=== PATIENT | male | born 1990 | race Two or more races ===

== ENCOUNTER 2023-12-27 01:10 | Inpatient (IN) | payer MEDICAID, OTHER ==
[~2023-12-27] VITALS: Ht 177.8 cm; Wt 90.7 kg
[2023-12-27 02:38] LABS: Basophils # (auto) 0 10 ^3/uL (0-0.2); Basophils % (auto) 0.2 % (0.0-2.0); Eosinophils # (auto) 0 10 ^3/uL (0-0.8); Hematocrit 46.4 % (41.0-53.0); Lymphocytes # (auto) 1.7 10 ^3/uL (0.4-5.4); Lymphocytes % (auto) 11.5 % (10.0-50.0); Mean Corpuscular Hemoglobin 27.1 pg (28.0-32.0); Mean Corpuscular Hgb Conc. 32.3 g/dL (32.0-36.0); Mean Corpuscular Volume 83.7 fL (80.0-100.0); Monocytes % (auto) 6.3 % (0.0-12.0); Neutrophils # (auto) 12.5 10 ^3/uL (1.6-8.6); Nucleated Red Blood Cells % 0.1 %; Red Blood Cells 5.54 10^6/uL (4.5-5.90); Red Cell Distribution Width 16.9 % (11.8-14.3); White Blood Cell 15.2 10^3/uL (4.4-10.8)
[2023-12-27 02:45] LABS: Acetaminophen < 2.0 UG/ML (10.0-20.0); Alanine Aminotransferase 59 U/L (7-40); Albumin 4.6 g/dL (3.2-4.8); Alkaline Phosphatase 157 U/L (46-116); Anion Gap 21 (5-15); Aspartate Aminotransferase 29 U/L (13-40); Bilirubin, Total 0.3 mg/dL (0.2-1.0); Calcium 9.7 mg/dL (8.7-10.4); Carbon Dioxide 15 mmol/L (20-30); Chloride 101 mmol/L (98-107); Glucose 161 mg/dL (74-106); Lipase 38 U/L (12-53); Potassium 3.6 mmol/L (3.5-5.1); Sodium 137 mmol/L (136-145); Total Protein 7.7 g/dL (5.7-8.2)
[2023-12-27 02:53] LABS: Salicylate < 3.0 mg/dL (2.8-20.0)
[2023-12-27 02:54] LABS: BUN/Creatinine Ratio 4.6 (10.0-20.0); Blood Urea Nitrogen < 5 mg/dL (9-23)
[2023-12-27 03:08] LABS: Blood Alcohol < 3.0 mg/dL (<10)
[2023-12-27] MEDS: ONDANSETRON ODT 4 MG TAB PO ONE (03:38)
[2023-12-27 04:00] VITALS: PULSE 64; RESP 15; O2SAT 97
[2023-12-27] MEDS: D5W/SOD CHLO 0.9% 1,000 ML IV ONE ×2 (04:00→05:00)
[2023-12-27] MEDS: THIAMINE 100mg/ml INJ (200mg/2ml VIAL) IV ONE (05:00)
[2023-12-27] MEDS ORDERED: NITROGLYCERIN 0.4 MG SL TAB SL PRN (05:15)
[2023-12-27] MEDS ORDERED: MORPHINE SULFATE INJ 2 MG/ml SYRG IV PRN (05:15)
[2023-12-27] MEDS: chlordiazePOXIDE HCL 25 MG CAP PO PRN (05:57)
[2023-12-27 09:02] LABS: Amphetamine Screen, Urine Neg (NEGATIVE); Barbiturate Scree,Urine Neg (NEGATIVE); Benzodiazephine Screen, Urine Neg (NEGATIVE); Cocaine Screen, Urine Neg (NEGATIVE); Opiate Scree,Urine Neg (NEGATIVE)
[2023-12-27 09:03] LABS: Cannabinoid Screen, Urine Neg (NEGATIVE); Phencyclidine Screen, Urine Neg (NEGATIVE)
[2023-12-27 09:34] LABS: Urine Bacteria None Seen /hpf (None Seen); Urine WBC None Seen /hpf (0 - 3)
[2023-12-27 09:46] LABS: Urine Blood Negative /uL (Negative); Urine Clarity Clear (Clear); Urine Color Light-Yellow (Yellow); Urine Protein, UAD Negative (Negative); Urine Specific Gravity 1.011 (1.001-1.035); Urine Urobilinogen Normal (Negative)
[2023-12-27] MEDS: ONDANSETRON HCL 4 MG/2 ML VIAL IV PRN (10:11)
[2023-12-27] MEDS: LORazepam 2MG/ML-1ML VIAL IV PRN ×2 (11:04→17:54)
[2023-12-27] MEDS: LORazepam 2MG/ML-1ML VIAL ONE (11:23)
[2023-12-27] MEDS: FOLIC ACID 1 MG, MAGNESIUM SULF SDV 50% 8 MEQ, MULTIPLE VITAMIN 10 ML, THIAMINE INJ 100... INJ SCH (12:01)
[2023-12-27 14:57] VITALS: PULSE 98; RESP 22; O2SAT 98
[2023-12-27] MEDS: FOLIC ACID 1 MG TAB PO ONE (17:52)
[2023-12-27] MEDS: THIAMINE HCL 100 MG TAB PO ONE (17:52)
[2023-12-27] MEDS: SODIUM CHLORIDE 0.9% 1,000 ML IV SCH (17:53)
[2023-12-27] MEDS ORDERED: FOLIC ACID 1 MG, MAGNESIUM SULF SDV 50% 8 MEQ, MULTIPLE VITAMIN 10 ML, THIAMINE INJ 100... INJ SCH (18:00)
[2023-12-27 19:30] VITALS: PULSE 116; RESP 16; O2SAT 100
[2023-12-28 06:07] LABS: Basophils # (auto) 0 10 ^3/uL (0-0.2); Basophils % (auto) 0.6 % (0.0-2.0); Eosinophils # (auto) 0 10 ^3/uL (0-0.8); Eosinophils % (auto) 0.2 % (0.0-7.0); Hematocrit 42.3 % (41.0-53.0); Hemoglobin 14.2 g/dL (13.5-17.5); Lymphocytes # (auto) 2.4 10 ^3/uL (0.4-5.4); Lymphocytes % (auto) 44.8 % (10.0-50.0); Mean Corpuscular Hemoglobin 27.9 pg (28.0-32.0); Mean Corpuscular Hgb Conc. 33.6 g/dL (32.0-36.0); Mean Corpuscular Volume 83.1 fL (80.0-100.0); Monocytes # (auto) 0.5 10 ^3/uL (0-1.3); Monocytes % (auto) 9.1 % (0.0-12.0); Neutrophils # (auto) 2.4 10 ^3/uL (1.6-8.6); Neutrophils % (auto) 45.3 % (37.0-80.0); Nucleated Red Blood Cells % 0.2 %; Red Blood Cells 5.09 10^6/uL (4.5-5.90); White Blood Cell 5.3 10^3/uL (4.4-10.8)
[2023-12-28 06:22] LABS: Alanine Aminotransferase 38 U/L (7-40); Alkaline Phosphatase 134 U/L (46-116); Anion Gap 6 (5-15); Aspartate Aminotransferase 27 U/L (13-40); Calcium 9.1 mg/dL (8.7-10.4); Carbon Dioxide 25 mmol/L (20-30); Chloride 106 mmol/L (98-107); Glucose 105 mg/dL (74-106); Potassium 3.7 mmol/L (3.5-5.1); Sodium 137 mmol/L (136-145)
[2023-12-28 06:23] LABS: Bilirubin, Total 0.7 mg/dL (0.2-1.0); Total Protein 6.8 g/dL (5.7-8.2)
[2023-12-28 06:24] LABS: BUN/Creatinine Ratio 4.1 (10.0-20.0); Blood Urea Nitrogen < 5 mg/dL (9-23)
[2023-12-28 08:30] VITALS: PULSE 98; RESP 14; TEMP 98.5; O2SAT 98
[2023-12-28] MEDS: ONDANSETRON HCL 4 MG/2 ML VIAL IV ONE (09:29)
[2023-12-28] MEDS: ACETAMINOPHEN 325 MG TAB PO ONE (09:29)
[2023-12-28] MEDS: THIAMINE HCL 100 MG TAB PO SCH (10:13)
[2023-12-28] MEDS: FOLIC ACID 1 MG TAB PO SCH (10:13)
[2023-12-28 12:30] VITALS: BP 118/68; PULSE 78; RESP 16; O2SAT 98
== END 2023-12-28 12:51 | disposition home or self-care (01) | DRG 422 ==
LOC: EDBD 01:10 → ER 01:10 → TELE 05:03 → UNDODEPER 12-28 12:41
PROVIDERS: ADMIT Internal Medicine Geriatric Medicine; ATTEND Internal Medicine Geriatric Medicine
DX: E86.0 Dehydration (principal); E87.29 Other acidosis; D72.829 Elevated white blood cell count, unspecified; F10.129 Alcohol abuse with intoxication, unspecified; F10.139 Alcohol abuse with withdrawal, unspecified; F41.9 Anxiety disorder, unspecified; Y90.0 Blood alcohol level of less than 20 mg/100 ml
CPT/HCPCS: 36415; 80053; 80307; 80320; 80329; 81001; 83690; 85025; 99291; G0378; J2405; Q0162

== ENCOUNTER 2024-01-20 03:10 | Emergency (ER) | payer MEDICAID ==
[~2024-01-20] VITALS: Ht 172.7 cm; Wt 80.0 kg
[2024-01-20 03:43] LABS: Chloride 109 mmol/L (98-107); Potassium 3.2 mmol/L (3.5-5.1); Sodium 140 mmol/L (136-145)
[2024-01-20 03:44] LABS: Anion Gap 10 (5-15); Calcium 9.6 mg/dL (8.7-10.4); Carbon Dioxide 21 mmol/L (20-30)
[2024-01-20 03:45] VITALS: PULSE 93; RESP 12; O2SAT 92
[2024-01-20 03:49] LABS: BUN/Creatinine Ratio 9.6 (10.0-20.0); Blood Urea Nitrogen 8 mg/dL (9-23); Glucose 121 mg/dL (74-106)
[2024-01-20 04:10] LABS: Basophils # (auto) 0 10 ^3/uL (0-0.2); Basophils % (auto) 0.4 % (0.0-2.0); Eosinophils # (auto) 0 10 ^3/uL (0-0.8); Eosinophils % (auto) 0.4 % (0.0-7.0); Hematocrit 43.2 % (41.0-53.0); Hemoglobin 14.5 g/dL (13.5-17.5); Lymphocytes # (auto) 2.1 10 ^3/uL (0.4-5.4); Lymphocytes % (auto) 27.7 % (10.0-50.0); Mean Corpuscular Hemoglobin 28.2 pg (28.0-32.0); Mean Corpuscular Hgb Conc. 33.6 g/dL (32.0-36.0); Mean Corpuscular Volume 84.1 fL (80.0-100.0); Monocytes # (auto) 0.5 10 ^3/uL (0-1.3); Monocytes % (auto) 7.2 % (0.0-12.0); Neutrophils # (auto) 4.8 10 ^3/uL (1.6-8.6); Neutrophils % (auto) 64.3 % (37.0-80.0); Nucleated Red Blood Cells % 0.2 %; Red Blood Cells 5.14 10^6/uL (4.5-5.90); Red Cell Distribution Width 15.9 % (11.8-14.3); White Blood Cell 7.4 10^3/uL (4.4-10.8)
[2024-01-20 04:40] VITALS: BP 108/64; PULSE 82; RESP 19; O2SAT 95
== END 2024-01-20 05:14 | disposition home or self-care (01) ==
LOC: EDBD 03:10 → ER 03:10
DX: R07.89 Other chest pain (principal)
CPT/HCPCS: 36415; 71045; 80048; 84484; 85025; 93005

== ENCOUNTER 2024-07-26 16:56 | Emergency (ER) | payer MEDICAID ==
[~2024-07-26] VITALS: Ht 170.2 cm; Wt 77.5 kg
[~2024-07-26 16:56] MED LIST: THIA100T10 PO
--- NOTE | 2024-07-26 17:11 | ED.PDOC ---
Altered Mental Status HPI Comments 34 y.o male presents to the ED via EMS for an evaluation of ALOC. EMS reports patient was found by staff of the [facility], [place] [address] [place] on the sidewalk altered and called 911. On scene, para Chief Complaint: ALOC Time Seen by MD: 17:04 Reviewed Notes: Nurses Notes, Medications, Allergies Allergies: Coded Allergies: NO KNOWN ALLERGIES (Unverified , 12/27/23) Home Meds Active Scripts Thiamine Hcl (VITAMIN B-1) 100 Mg Tb, 100 MG PO DAILY for 30 Days, #30 TAB Prov:EVERT WOO TRANSCRIPTION 06/06/24 Information Source: Patient, Emergency Med Personnel Mode of Arrival: EMS Severity: Unable to Care for Self Timing: Hours Duration: Since onset Quality: Decreased Alertness, Change in Behavior History of: None Past Medical History PAST MEDICAL HISTORY: Denies Surgical History: Denies all surgeries Family History Family History: Reviewed,noncontributory to illness Social History Smoker: Non-Smoker Alcohol: Heavy Drugs: Denies Drug Use Lives In: Home Unable to Obtain due to: Altered Mental Status Physical Exam Exam Comments smells of alcohol General Appearance: Other (ETOH intoxicated state ) HEENT: Normal ENT Inspection, Pharynx Normal, TMs Normal Neck: Full Range of Motion, Non-Tender, Normal, Normal Inspection Respiratory: Chest Non-Tender, Lungs Clear, No Accessory Muscle Use, No Respiratory Distress, Normal Breath Sounds Cardiovascular: No Edema, No JVD, No Murmur, No Gallop, Normal Peripheral Pulses, Regular Rate/Rhythm Breast Exam: Deferred Gastrointestinal: No Organomegaly, Non Tender, No Pulsatile Mass, Normal Bowel Sounds, Soft Genitalia: Deferred Pelvic: Deferred Rectal: Deferred Extremities: No calf tenderness, Normal capillary refill, Normal inspection, Normal range of motion, Non-tender, No pedal edema Musculoskeletal : Apperance: Normal Neurologic: Alert, survey technologist II-XII nml as Tested, No Motor Deficits, Normal Affect, Normal Mood, No Sensory Deficits Cerebellar Function: Normal Reflexes: Normal Skin: Dry, Normal Color, Warm Lymphatic: No Adenopathy Was a procedure done? Was a procedure done?: No Differential Diagnosis (ALOC) Differential Diagnosis: Dehydration, Hypoxemia, Drug Overdose, ETOH Intoxication X-Ray, Labs, Meds, VS Vital Signs Date Time Temp Pulse Resp B/P (MAP) Pulse Ox O2 Delivery O2 Flow Rate FiO2 07/26/24 18:30 16 97 Room Air* 0 21 07/26/24 18:30 98.1 80 16 111/64 (80) 97 98.1 07/26/24 17:05 98.2 89 17 127/78 (94) 98 07/26/24 17:02 94 Lab Test 07/26/24 19:03 Range/Units Plasma/Serum Blood Alcohol Pending X-Ray, Labs, Meds, VS Comment This 34-year-old male presents emergency room after being found intoxicated on his house. The patient has no complaints. He moves all 4 extremities has no signs of trauma. Alcohol level and CT of the head was ordered. Patient was signed out to the oncoming physician for final disposition Time of 1ST Reevaluation: 17:10 Reevaluation 1ST: Unchanged Patient Education/Counseling: Other Family Education/Counseling: No Family Present Departure 1 Departure Time of Disposition: 17:33 Impression: Primary Impression: Alcohol abuse Additional Impression: Altered mental status Condition: Fair Critical Care Note Critical Care Time?: No Stability Stability form required: No I personally scribed for HALINA CLARKE MD ([email or web address]) on 07/26/24 at 17:11. Electronically submitted by Renee Craft ([facility]). I personally scribed for HALINA CLARKE MD ([email or web address]) on 07/26/24 at 19:31. Electronically submitted by Markus Nguyễn ([email or web address]). HALINA CLARKE MD Jul 26, 2024 17:11
[2024-07-26 18:30] VITALS: RESP 16; O2SAT 97
--- NOTE | 2024-07-26 18:31 | DVH ---
CLINICAL HISTORY: altered TECHNIQUE: Helical imaging carried out from skull base to vertex without intravenous contrast. This e xam was performed according to our departmental dose optimization program. Up-to-date CT equipment an d radiation dose reduction techniques are utilized as appropriate. [Radimetrics Exposure Report] CTDIVol: [CTDIvol] mGy DLP: 1294.86 mGy-cm WID: COMPARISON: None FINDINGS: There is mild cerebral volume loss with concordant prominence of the subarachnoid spaces and ventricl es. There is a dilated perivascular space inferior to the right basal ganglia. There is no midline shift or mass effect. The ross white matter interfaces are maintained. The basal cisterns are patent. There is no evidence of acute intracranial hemorrhage or extra-axial fluid radha ection. The mastoid air cells and visualized paranasal sinuses are well-aerated. IMPRESSION: 1. No acute intracranial abnormality. 2. Mild cerebral volume loss greater than expected for patient age.
[2024-07-26 19:35] VITALS: PULSE 89; RESP 11; O2SAT 98
--- NOTE | 2024-07-26 19:36 | ED.PDOC ---
Altered Mental Status HPI Comments 34y M who presents to the ED via EMS for chief complaint of ALOC. Per EMS, pt has was next to empty alcohol bottle on the side of a store. EMS arrived on scene and pt was responding to verbal stimuli but is not answering questions upon arrival. Pt presents to the ED, disheveled and smells of ETOH and urine. Chief Complaint: ALOC Time Seen by MD: 15:00 Primary Care Provider: unknown Reviewed Notes: Medications, Allergies Allergies: Coded Allergies: NO KNOWN ALLERGIES (Unverified , 12/27/23) Home Meds Active Scripts Thiamine Hcl (VITAMIN B-1) 100 Mg Tb, 100 MG PO DAILY for 30 Days, #30 TAB Prov:EVERT WOO NP 06/06/24 Information Source: Patient Mode of Arrival: EMS Brought in by: EMS Past Medical History PAST MEDICAL HISTORY: Denies Surgical History: Denies all surgeries Family History Family History: Reviewed,noncontributory to illness Social History Smoker: Non-Smoker Alcohol: Heavy Drugs: Denies Drug Use Lives In: Home Constitutional: reports: malaise, weakness; denies: chills, diaphoresis, fatigue, fever, sweats, others EENTM: denies: blurred vision, double vision, ear bleeding, ear discharge, ear drainage, ear pain, ear ringing, eye pain, eye redness, hearing loss, mouth pain, mouth swelling, nasal discharge, nose bleeding, nose congestion, nose pain, photophobia, tearing, throat pain, throat swelling, voice changes, others Respiratory: denies: cough, hemoptysis, orthopnea, SOB at rest, shortness of breath, SOB with excertion, stridor, wheezing, others Cardiovascular: denies: chest pain, dizzy spells, diaphoresis, Dyspnea on exertion, edema, irregular heart beat, left arm pain, lightheadedness, palpitations, PND, syncope, others Gastrointestinal: denies: abdomen distended, abdominal pain, blood streaked bowels, constipated, diarrhea, dysphagia, difficulty swallowing, hematemesis, melena, nausea, poor appetite, poor fluid intake, rectal bleeding, rectal pain, vomiting, others Genitourinary: denies: burning, dysuria, flank pain, frequency, hematuria, incontinence, penile discharge, penile sore, pain, testicle pain, testicle swelling, urgency, others Neurological: denies: dizziness, fainting, headache, left sided numbness, left sided weakness, numbness, paresthesia, pre-existing deficit, right sided numbness, right sided weakness, seizure, speech problems, tingling, tremors, weakness, others Musculoskeletal: denies: back pain, gout, joint pain, joint swelling, muscle pain, muscle stiffness, neck pain, others Integumetry: denies: bruises, change in color, change in hair/nails, dryness, laceration, lesions, lumps, rash, wounds, others Allergic/Immunocompromised: denies: Difficulty Healing, Frequent Infections, Hives, Itching, others Hematologic/Lymphatic: denies: anemia, blood clots, easy bleeding, easy bruising, swollen glands, others Endocrine: denies: excessive hunger, excessive sweating, excessive thirst, excessive urination, flushing, intolerance to cold, intolerance to heat, un explained weight gain, unexplained weight loss, others Psychiatric: denies: anxiety, bipolar disorder, depression, hopeless, panic disorder, schizophrenia, sleepless, suicidal, others All Other Systems: Reviewed and Negative Physical Exam General Appearance: Other HEENT: Normal ENT Inspection, Pharynx Normal, TMs Normal Neck: Full Range of Motion, Non-Tender, Normal, Normal Inspection Respiratory: Chest Non-Tender, Lungs Clear, No Accessory Muscle Use, No Respiratory Distress, Normal Breath Sounds Cardiovascular: No Edema, No JVD, No Murmur, No Gallop, Normal Peripheral Pulses, Regular Rate/Rhythm Breast Exam: Deferred Gastrointestinal: No Organomegaly, Non Tender, No Pulsatile Mass, Normal Bowel Sounds, Soft Genitalia: Deferred Pelvic: Deferred Rectal: Deferred Extremities: No calf tenderness, Normal capillary refill, Normal inspection, Normal range of motion, Non-tender, No pedal edema Musculoskeletal : Apperance: Normal Neurologic: Other (pt slow to speech, but follows commands, responds to , no noted cephalic or head injury noted) Cerebellar Function: Normal Reflexes: Normal Skin: Dry, Normal Color, Warm Lymphatic: No Adenopathy Was a procedure done? Was a procedure done?: No Differential Diagnosis (ALOC) Differential Diagnosis: Dehydration, Hypoglycemia, DKA, Encephalopathy, Hypoxemia, Seizure, Closed Head Injury, CVA, Mass Lesion, SAH, Drug Overdose, ETOH Intoxication X-Ray, Labs, Meds, VS Vital Signs Date Time Temp Pulse Resp B/P (MAP) Pulse Ox O2 Delivery O2 Flow Rate FiO2 07/26/24 19:35 89 11 98 Room Air* 0 21 07/26/24 19:35 98.2 89 11 113/76 (88) 98 98.2 07/26/24 18:30 16 97 Room Air* 0 21 07/26/24 18:30 98.1 80 16 111/64 (80) 97 98.1 07/26/24 17:05 98.2 89 17 127/78 (94) 98 07/26/24 17:02 94 Lab Test 07/26/24 19:03 Range/Units Plasma/Serum Blood Alcohol 257.9 H <10 mg/dL [place] [address] Ph: [phone] DIAGNOSTIC IMAGING Diagnostic Imaging Report : [id number] Signed PATIENT: SYLVIA SANCHEZ ACCT: [id number] UNIT: [id number] : 1990 LOC: ER ROOM / BED: / AGE / SEX: 34 / M ADM STATUS: REG ER SERVICE [id number] ORDERING PHYSICIAN: HALINA CLARKE MD PROCEDURE(s): HWOCT - HEAD WITHOUT CONTRAST REASON: altered ORDER NUMBER(s): [id number], ACCESSION NUMBER(s): [id number] CLINICAL HISTORY: altered TECHNIQUE: Helical imaging carried out from skull base to vertex without intravenous contrast. This exam was performed according to our departmental dose optimization program. Up-to-date CT equipment and radiation dose reduction techniques are utilized as appropriate. [Radimetrics Exposure Report] CTDIVol: [CTDIvol] mGy DLP: 1294.86 mGy-cm WID: COMPARISON: None FINDINGS: There is mild cerebral volume loss with concordant prominence of the subarachnoid spaces and ventricles. There is a dilated perivascular space inferior to the right basal ganglia. There is no midline shift or mass effect. The ross white matter interfaces are maintained. The basal cisterns are patent. There is no evidence of acute intracranial hemorrhage or extra-axial fluid collection. The mastoid air cells and visualized paranasal sinuses are well-aerated. IMPRESSION: 1. No acute intracranial abnormality. 2. Mild cerebral volume loss greater than expected for patient age. ATED BY: MURALI YOUNG MD DICTATED DATE/TIME: 07/26/241828 SIGNED BY: MURALI YOUNG MD SIGNED DATE/TIME: 07/26/241828 CC: Time of 1ST Reevaluation: 17:33 Reevaluation 1ST: Unchanged Time of 2ND Reevaluation: 20:25 Reevaluation 2ND: Improved Patient Education/Counseling: Diagnosis, Treatment, Prognosis, Need For Follow Up Family Education/Counseling: Diagnosis, Treatment, Prognosis, Need For Follow Up Additional Information pt is intoxicated with alcohol abuse, with a normal head ct. once he is sober and is able to give us the number for his he will be discharged to her. i will sign out to Dr Jovel to observe him until sober Departure 1 Departure Time of Disposition: 17:33 Impression: Primary Impression: Alcohol abuse Additional Impression: Altered mental status Qualified Codes: R40.0 - Somnolence Disposition: 01 HOME / SELF CARE / HOMELESS Condition: Fair Discharged With: Relative Critical Care Note Critical Care Time?: Yes (55 min-critical care time only) Critical care comment: due to concerns for patient's condition deterioration, the care required my highest attention and readiness to intervene. i spoke to the family, patient, reviewed any records, ordered the appropriate tests and treatments, reviewed the results, response and communicated with medical personnel, formulated a plan of care. critical care time does not include any procedures Stability Stability form required: No Heart Score Heart Score: Heart Score Response (Comments) Value History N/A 0 EKG N/A 0 Age N/A 0 Risk Factors N/A 0 Troponin N/A 0 Total 0 I personally scribed for KATELYNN BURKS MD ([email or web address]) on 07/26/24 at 19:36. Electronically submitted by Markus Nguyễn ([email or web address]). KATELYNN BURKS MD Jul 26, 2024 19:36
[2024-07-26] MEDS: SODIUM CHLORIDE 0.9% 1,000 ML IV ONE (20:38)
[2024-07-26 20:50] VITALS: PULSE 83; RESP 13; O2SAT 98
[2024-07-27] MEDS: FAMOTIDINE 20 MG TAB PO ONE (02:44)
[2024-07-27 04:10] VITALS: BP 124/81; PULSE 112; RESP 20; TEMP 97.8; O2SAT 99
--- NOTE | 2024-07-27 19:12 | ECG ---
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
== END 2024-07-27 04:18 | disposition home or self-care (01) ==
LOC: EDBD 16:56 → ER 16:56
DX: R41.82 Altered mental status, unspecified (principal); F10.10 Alcohol abuse, uncomplicated
CPT/HCPCS: 36415; 70450; 80320; 93005; 96360; 99285; J7030

== ENCOUNTER 2024-09-09 08:48 | Emergency (ER) | payer MEDICAID ==
[~2024-09-09] VITALS: Ht 170.2 cm; Wt 90.0 kg
--- NOTE | 2024-09-09 11:16 | ED.PDOC ---
Altered Mental Status HPI Comments 34 year old male CHACE presents to the ED with chief complaint of ETOH abuse. EMS reports patient was found in his workplace parking lot passed out in his car with a bottle of Bacardi beside him, indicating ETOH intoxication. EMS relays patient is asleep, but arousable and his BG was noted to be 151. Patient unable to answer questions at this time and cannot be woken up. Chief Complaint: ETOH Time Seen by MD: 11:10 Primary Care Provider: unknown Reviewed Notes: Nurses Notes, Factorer Notes, Medications, Allergies Allergies: Coded Allergies: NO KNOWN ALLERGIES (Unverified , 12/27/23) Home Meds Active Scripts Thiamine Hcl (VITAMIN B-1) 100 Mg Tb, 100 MG PO DAILY for 30 Days, #30 TAB Prov:EVERT WOO NP 06/06/24 Information Source: Emergency Med Personnel Mode of Arrival: EMS Severity: Unresponsive Timing: Hours Duration: Since onset (d) Quality: Decreased Alertness Recent: Other (ETOH abuse) History of: None Associated Signs and Symptoms: None Past Medical History PAST MEDICAL HISTORY: Denies Surgical History: Denies all surgeries Family History Family History: Reviewed,noncontributory to illness Social History Smoker: Non-Smoker Alcohol: Heavy Drugs: Denies Drug Use Lives In: Home Constitutional: denies: chills, diaphoresis, fatigue, fever, malaise, sweats, weakness, others EENTM: denies: blurred vision, double vision, ear bleeding, ear discharge, ear drainage, ear pain, ear ringing, eye pain, eye redness, hearing loss, mouth pain, mouth swelling, nasal discharge, nose bleeding, nose congestion, nose joceline n, photophobia, tearing, throat pain, throat swelling, voice changes, others Respiratory: denies: cough, hemoptysis, orthopnea, SOB at rest, shortness of breath, SOB with excertion, stridor, wheezing, others Cardiovascular: denies: chest pain, dizzy spells, diaphoresis, Dyspnea on exertion, edema, irregular heart beat, left arm pain, lightheadedness, palpitations, PND, syncope, others Gastrointestinal: denies: abdomen distended, abdominal pain, blood streaked bowels, constipated, diarrhea, dysphagia, difficulty swallowing, hematemesis, melena, nausea, poor appetite, poor fluid intake, rectal bleeding, rectal pain, vomiting, others Genitourinary: denies: burning, dysuria, flank pain, frequency, hematuria, incontinence, penile discharge, penile sore, pain, testicle pain, testicle swelling, urgency, others Neurological: denies: dizziness, fainting, headache, left sided numbness, left sided weakness, numbness, paresthesia, pre-existing deficit, right sided numbness, right sided weakness, seizure, speech problems, tingling, tremors, weakness, others Musculoskeletal: denies: back pain, gout, joint pain, joint swelling, muscle pain, muscle stiffness, neck pain, others Integumetry: denies: bruises, change in color, change in hair/nails, dryness, laceration, lesions, lumps, rash, wounds, others Allergic/Immunocompromised: denies: Difficulty Healing, Frequent Infections, Hives, Itching, others Hematologic/Lymphatic: denies: anemia, blood clots, easy bleeding, easy bruising, swollen glands, others Endocrine: denies: excessive hunger, excessive sweating, excessive thirst, excessive urination, flushing, intolerance to cold, intolerance to heat, unexplained weight gain, unexplained weight loss, others Psychiatric: denies: anxiety, bipolar disorder, depression, hopeless, panic disorder, schizophrenia, sleepless, suicidal, others Unable to Obtain due to: Altered Mental Status All Other Systems: Reviewed and Negative Physical Exam General Appearance: No Apparent Distress, Other (Somnelant, slurred speech) HEENT: Normal ENT Inspection, PERRL/EOMI Neck: Full Range of Motion, Non-Tender, Normal, Normal Inspection Respiratory: Chest Non-Tender, Lungs Clear, No Accessory Muscle Use, No Respiratory Distress, Normal Breath Sounds Cardiovascular: No Edema, No JVD, No Murmur, No Gallop, Normal Peripheral Pulses, Regular Rate/Rhythm Breast Exam: Deferred Gastrointestinal: No Organomegaly, Non Tender, No Pulsatile Mass, Normal Bowel Sounds, Soft Genitalia: Deferred Pelvic: Deferred Rectal: Deferred Extremities: No calf tenderness, Normal capillary refill, Normal inspection, Normal range of motion, Non-tender, No pedal edema Musculoskeletal : Apperance: Normal Neurologic: Alert, jive developer II-XII nml as Tested, No Motor Deficits, Normal Affect, Normal Mood, No Sensory Deficits Cerebellar Function: Normal Reflexes: Normal Skin: Dry, Normal Color, Warm Lymphatic: No Adenopathy Was a procedure done? Was a procedure done?: No Differential Diagnosis (ALOC) Differential Diagnosis: ETOH Intoxication X-Ray, Labs, Meds, VS Vital Signs Date Time Temp Pulse Resp B/P (MAP) Pulse Ox O2 Delivery O2 Flow Rate FiO2 09/09/24 13:28 69 16 148/72 (97) 98 09/09/24 08:56 98.5 80 16 114/74 (87) 98 Lab Test 09/09/24 09:55 Range/Units Plasma/Serum Blood Alcohol 439.1 *H <10 mg/dL Time of 1ST Reevaluation: 12:10 Reevaluation 1ST: Unchanged Patient Education/Counseling: Pt Unresponsive Family Education/Counseling: No Family Present Additional Information I reviewed the following notes from patient's past medical encounters: 07/26/24 for ETOH abuse The following tests were ordered, and results were reviewed by me: Blood Alcohol I reviewed and agreed with the following test results read by other providers: None Additional Information was gathered from interviewing the following independent historians: EMS I discussed treatment and results with medical personnel. Departure 1 Departure Time of Disposition: 15:47 (Patient presented at intoxicated. Patient is now clinically sober ambulating without assistance tolerating p.o. and A&O x4.) Impression: Primary Impression: Alcohol intoxication Qualified Codes: F10.920 - Alcohol use, unspecified with intoxication, uncomplicated Disposition: 01 HOME / SELF CARE / HOMELESS Condition: Stable Additional Instructions: You were intoxicated. It is important to only drink in moderation. If you need help quitting you can call (HELP). If your symptoms worsen or you have any other concerns then please return to the ER. Discharged With: Self Critical Care Note Critical Care Time?: No Stability Stability form required: No Heart Score Heart Score: Heart Score Response (Comments) Value History N/A 0 EKG N/A 0 Age N/A 0 Risk Factors N/A 0 Troponin N/A 0 Total 0 I personally scribed for MALOU RINALDI MD ([email or web address]) on 09/09/24 at 11:16. Electronically submitted by Greg Andrade ([email or web address]). MALOU RINALDI MD Sep 09, 2024 11:16
[2024-09-09 16:52] VITALS: BP 121/73; PULSE 129; RESP 18; TEMP 98.3; O2SAT 98
== END 2024-09-09 16:56 | disposition home or self-care (01) ==
LOC: EDBD 08:48 → EDUNIT# 08:48 → ER 08:48
DX: F10.129 Alcohol abuse with intoxication, unspecified (principal); Y90.9 Presence of alcohol in blood, level not specified
CPT/HCPCS: 36415; 80320

== ENCOUNTER 2025-01-26 11:57 | Inpatient (IN) | payer MEDICAID ==
[~2025-01-26] VITALS: Ht 175.3 cm; Wt 100.5 kg
--- NOTE | 2025-01-26 12:09 | ED.PDOC ---
History of Present Illness HPI Comments 34-year-old male with no reported PMHx brought in by EMS presents with a chief complaint of Altered Level of Consciousness s/p EtOH abuse. Patient was at a motel and was suppose to have checked out. Staff at motel found him unresponsive and called EMS. Patient was found with 8 twisted teas around him and some white substance around his nose. EMS gave Narcan, but it had no effect on patients mentation. Patient is sleeping on EMS gurney. Time Seen by MD: 12:03 Primary Care Provider: unknown Reviewed Notes: Medications, Allergies Allergies: Coded Allergies: NO KNOWN ALLERGIES (Unverified , 12/27/23) Home Meds Active Scripts Thiamine Hcl (VITAMIN B-1) 100 Mg Tb, 100 MG PO DAILY for 30 Days, #30 TAB Prov:EVERT WOO NP 06/06/24 Information Source: Emergency Med Personnel Mode of Arrival: EMS Severity: Moderate Timing: Minutes Duration: Since onset Prehospital treatment: Call Center Assistant, Oxygen, Treatment (NARCAN) Past Medical History PAST MEDICAL HISTORY: Denies Surgical History: Denies all surgeries Family History Family History: Reviewed,noncontributory to illness Social History Smoker: Non-Smoker Alcohol: Heavy Drugs: Denies Drug Use Lives In: Home Constitutional: denies: chills, diaphoresis, fatigue, fever, malaise, sweats, weakness, others EENTM: denies: blurred vision, double vision, ear bleeding, ear discharge, ear drainage, ear pain, ear ringing, eye pain, eye redness, hearing loss, mouth pain, mouth swelling, nasal discharge, nose bleeding, nose congestion, nose pain, photophobia, tearing, throat pain, throat swelling, voice changes, others Respiratory: denies: cough, hemoptysis, orthopnea, SOB at rest, shortness of breath, SOB with excertion, stridor, wheezing, others Cardiovascular: denies: chest pain, dizzy spells, diaphoresis, Dyspnea on exertion, edema, irregular heart beat, left arm pain, lightheadedness, palpitations, PND, syncope, others Gastrointestinal: denies: abdomen distended, abdominal pain, blood streaked bowels, constipated, diarrhea, dysphagia, difficulty swallowing, hematemesis, melena, nausea, poor appetite, poor fluid intake, rectal bleeding, rectal pain, vomiting, others Genitourinary: denies: burning, dysuria, flank pain, frequency, hematuria, incontinence, penile discharge, penile sore, pain, testicle pain, testicle swelling, urgency, others Neurological: denies: dizziness, fainting, headache, left sided numbness, left sided weakness, numbness, paresthesia, pre-existing deficit, right sided numbness, right sided weakness, seizure, speech problems, tingling, tremors, weakness, others Musculoskeletal: denies: back pain, gout, joint pain, joint swelling, muscle pain, muscle stiffness, neck pain, others Integumetry: denies: bruises, change in color, change in hair/nails, dryness, laceration, lesions, lumps, rash, wounds, others Allergic/Immunocompromised: denies: Difficulty Healing, Frequent Infections, Hives, Itching, others Hematologic/Lymphatic: denies: anemia, blood clots, easy bleeding, easy bruising, swollen glands, others Endocrine: denies: excessive hunger, excessive sweating, excessive thirst, excessive urination, flushing, intolerance to cold, intolerance to heat, unexplained weight gain, unexplained weight loss, others Psychiatric: denies: anxiety, bipolar disorder, depression, hopeless, panic di sorder, schizophrenia, sleepless, suicidal, others Unable to Obtain due to: Altered Mental Status All Other Systems: Reviewed and Negative Physical Exam General Appearance: Moderate Distress, Normal HEENT: Normal ENT Inspection, Pharynx Normal, TMs Normal Neck: Full Range of Motion, Non-Tender, Normal, Normal Inspection Respiratory: Chest Non-Tender, Lungs Clear, No Accessory Muscle Use, No Respiratory Distress, Normal Breath Sounds Cardiovascular: No Edema, No JVD, No Murmur, No Gallop, Normal Peripheral Pulses, Regular Rate/Rhythm Breast Exam: Deferred Gastrointestinal: No Organomegaly, Non Tender, No Pulsatile Mass, Normal Bowel Sounds, Soft Genitalia: Deferred Pelvic: Deferred Rectal: Deferred Extremities: No calf tenderness, Normal capillary refill, Normal inspection, Normal range of motion, Non-tender, No pedal edema Musculoskeletal : Apperance: Normal Neurologic: Alert, hat sizer II-XII nml as Tested, No Motor Deficits, Normal Affect, Normal Mood, No Sensory Deficits Cerebellar Function: Normal Reflexes: Normal Skin: Dry, Normal Color, Warm Peripheral Pulses: 3+ Radial (R), 3+ Radial (L) Lymphatic: No Adenopathy Was a procedure done? Was a procedure done?: No Differential Dx Considerations may include: Alcohol intoxication X-Ray, Labs, Meds, VS Vital Signs Date Time Temp Pulse Resp B/P (MAP) Pulse Ox O2 Delivery O2 Flow Rate FiO2 01/26/25 12:05 98.6 84 16 126/79 (95) 96 98.6 Lab Test 01/26/25 12:53 Range/Units Plasma/Serum Blood Alcohol 422.9 *H <10 mg/dL Patient altered. Alcohol intoxication. Vitals stable. Establish intravenous access. Was given fluids. Was given thiamine. CT of the head. Waiting for family. Continue monitoring. Time of 1ST Reevaluation: 12:33 Reevaluation 1ST: Unchanged Patient Education/Counseling: Diagnosis, Treatment, Need For Follow Up Family Education/Counseling: No Family Present SEPSIS Sepsis Screen Physician Orders Call Center Assistant (01/26/25 12:15) Vital Signs Date Time Temp Pulse Resp B/P (MAP) Pulse Ox O2 Delivery O2 Flow Rate FiO2 01/26/25 12:05 98.6 84 16 126/79 (95) 96 98.6 Departure 1 Departure Time of Disposition: 14:32 Impression: Primary Impression: Metabolic encephalopathy Additional Impressions: Alcohol abuse Alcoholic ketoacidosis Disposition: ADMITTED INPATIENT Admit to: Med Surg Condition: Guarded Critical Care Note Critical Care Time?: Yes (90 min-critical care time only) Critical care comment: Continue to monitor Stability Stability form required: No Heart Score Heart Score: Heart Score Response (Comments) Value History N/A 0 EKG N/A 0 Age N/A 0 Risk Factors N/A 0 Troponin N/A 0 Total 0 I personally scribed for ORESTES ALEMAN MD ([email or web address]) on 01/26/25 at 12:09. Electronically submitted by Jef Aguirre ([email or web address]). ORESTES ALEMAN MD Jan 26, 2025 12:09
[2025-01-26] MEDS: SODIUM CHLORIDE 0.9% 1,000 ML IV ONE ×2 (14:45→17:21)
--- NOTE | 2025-01-26 15:29 | DVH ---
EXAM: CT HEAD WITHOUT CONTRAST INDICATION: altered TECHNIQUE: CT of the head without intravenous contrast. Radiation Dose Information: CT Dose: CTDI volume is 53.45 mGy. Dose-length product is 965.52 mGy*cm The dose indicators for CT are the volume Computed Tomography (CT) Dose Index (CTDIvol) and the Dose Length Product (DLP), and are measured in units of mGy and mGy-cm, respectively. These indicators are not patient dose, but values generated from the CT scanner acquisition factors. The report includes radiation exposure data for exposures received during this examination. COMPARISON: CT HEAD WITHOUT CONTRAST on DOS: 07/26/24 FINDINGS: There is no evidence of acute intracranial hemorrhage, extra-axial collection, mass effect, midline s hift, herniation or hydrocephalus. The ventricles, sulci and cisterns are age appropriate. The ross-white differentiation is intact. Patchy periventricular and subcortical white matter hypoattenuation is nonspecific but may be related to small vessel ischemic disease. The visualized paranasal sinuses and mastoid air cells are clear. The surrounding soft tissues and osseous structures are unremarkable. IMPRESSION: 1. No acute intracranial abnormality. 2. No significant change from 07/26/2024.
[2025-01-26 16:47] VITALS: PULSE 62; RESP 20; O2SAT 96
[2025-01-26] MEDS: SODIUM CHLORIDE 0.9% 1,000 ML IVB ONE (17:20)
[2025-01-26] MEDS: THIAMINE 100mg/ml INJ (200mg/2ml VIAL) IV ONE (17:25)
[2025-01-26 18:50] VITALS: PULSE 85; RESP 20; O2SAT 98
[2025-01-26 18:56] LABS: Hematocrit 43.0 % (41.0-53.0); Hemoglobin 14.5 g/dL (13.5-17.5); Mean Corpuscular Hemoglobin 29.2 pg (28.0-32.0); Mean Corpuscular Volume 86.8 fL (80.0-100.0); Nucleated Red Blood Cells % 0.2 %
[2025-01-26] MEDS: FOLIC ACID 1 MG, MULTIPLE VITAMIN 10 ML, MAGNESIUM SULF SDV 50% 8 MEQ, THIAMINE INJ 100... INJ SCH (18:58)
[2025-01-26] MEDS ORDERED: LORazepam 2MG/ML-1ML VIAL IV PRN (19:00)
[2025-01-26] MEDS ORDERED: ONDANSETRON HCL 4 MG/2 ML VIAL IV PRN (19:00)
[2025-01-26 19:07] LABS: Alanine Aminotransferase 22 U/L (7-40); Albumin 4.2 g/dL (3.2-4.8); Alkaline Phosphatase 84 U/L (46-116); Anion Gap 15 (5-15); BUN/Creatinine Ratio 5.9 (10.0-20.0); Calcium 8.9 mg/dL (8.7-10.4); Sodium 145 mmol/L (136-145); Total Protein 6.6 g/dL (5.7-8.2)
[2025-01-26 19:08] LABS: Bilirubin, Total 0.3 mg/dL (0.2-1.0); Blood Urea Nitrogen 5 mg/dL (9-23); Carbon Dioxide 20 mmol/L (20-31); Chloride 110 mmol/L (98-107); Glucose 126 mg/dL (74-106); Potassium 3.4 mmol/L (3.5-5.1)
[2025-01-26 19:35] VITALS: RESP 17; O2SAT 98
[2025-01-26 19:37] LABS: Amphetamine Screen, Urine Neg (NEGATIVE); Barbiturate Scree,Urine Neg (NEGATIVE); Benzodiazephine Screen, Urine Neg (NEGATIVE); Cannabinoid Screen, Urine Neg (NEGATIVE); Cocaine Screen, Urine Neg (NEGATIVE); Opiate Scree,Urine Neg (NEGATIVE); Phencyclidine Screen, Urine Neg (NEGATIVE)
[2025-01-27] VITALS (9 sets, daily range): BP systolic 107–169; BP diastolic 84–110; PULSE 60–102; RESP 16–20; TEMP 97.6–99.2; O2SAT 94–100
--- NOTE | 2025-01-27 00:57 | DVHHP2 ---
History of Present Illness Reason for Visit: Altered mental status History of Present Illness 34-year-old male presents for evaluation of altered mental status. Patient was found NSAID a motel unresponsive. Of note, patient has been admitted on multiple occasions for alcohol intoxication. Currently he is lethargic and oriented x3. Does not recall how he ended up in the hospital. Past Medical History Denies Past Surgical History Denies Family History Noncontributory Smoke: No ALCOHOL: heavy Drugs: None Lives: with Family Review of Systems Review of Systems Review of systems are currently negative otherwise addressed in HPI. Allergies: Coded Allergies: NO KNOWN ALLERGIES (Unverified , 12/27/23) Medications Current Medications Medications Dose Ordered Sig/Pearl Route Start Time Stop Time Status Last Admin Dose Admin Folic Acid 1 mg/ Multivitamins 10 ml/Magnesium Sulfate 8 meq/ Thiamine HCl 100 mg/Dextrose 1,013.2 ml @ 125.001 mls/hr DAILY@1800 INJ 01/26/25 18:00 01/26/25 18:58 125.001 MLS/HR Folic Acid 1 mg DAILY PO 01/27/25 10:00 Thiamine HCl 100 mg DAILY PO 01/27/25 10:00 Chlordiazepoxide HCl 25 mg Q6HPRN PRN PO 01/26/25 19:00 01/26/25 19:06 25 MG Ondansetron HCl 4 mg Q4HP PRN IV 01/26/25 19:00 Lorazepam 1 mg Q5MINP PRN IV 01/26/25 19:00 Chlordiazepoxide HCl 50 mg Q8H PO 01/26/25 19:15 01/27/25 11:16 Chlordiazepoxide HCl 50 mg Q12HR PO 01/27/25 10:00 01/27/25 22:01 Chlordiazepoxide HCl 25 mg Q12HR PO 01/28/25 10:00 01/28/25 22:01 Chlordiazepoxide HCl 25 mg QAM PO 01/29/25 07:00 01/29/25 07:01 Exam Vital Signs Vital Signs Date Time Temp Pulse Resp B/P (MAP) Pulse Ox O2 Delivery O2 Flow Rate FiO2 01/26/25 20:00 90 01/26/25 18:50 20 98 Room Air* 0 21 01/26/25 18:49 98.0 105/66 (79) 98.0 Exam Gen: 34-year-old male in no apparent distress Skin: Warm, dry, normal color and texture, no rash. HEENT: Normocephalic atraumatic, mucous membranes moist and pink. Neck: Cervical and supraclavicular nodes normal without enlargement, trachea is midline, thyroid gland is normal without masses. Pulmonary: Clear to auscultation and percussion bilaterally. Cardiac: Regular rate and rhythm. No murmur Abdomen: Soft, nontender, nondistended, bowel sounds present all 4 quadrants, no guarding, no rigidity, no organomegaly. Extremities: No cyanosis, clubbing, no edema Neuro: Cranial nerves II through XII grossly intact, normal affect and speech, no focal motor deficits. Labs/Xrays ORDERING PHYSICIAN: ORESTES ALEMAN MD PROCEDURE(s): HWOCT - HEAD WITHOUT CONTRAST REASON: altered ORDER NUMBER(s): [id number], ACCESSION NUMBER(s): [id number] EXAM: CT HEAD WITHOUT CONTRAST INDICATION: altered TECHNIQUE: CT of the head without intravenous contrast. Radiation Dose Information: CT Dose: CTDI volume is 53.45 mGy. Dose-length product is 965.52 mGy*cm The dose indicators for CT are the volume Computed Tomography (CT) Dose Index (CTDIvol) and the Dose Length Product (DLP), and are measured in units of mGy and mGy-cm, respectively. These indicators are not patient dose, but values generated from the CT scanner acquisition factors. The report includes radiation exposure data for exposures received during this examination. COMPARISON: CT HEAD WITHOUT CONTRAST on DOS: 07/26/24 FINDINGS: There is no evidence of acute intracranial hemorrhage, extra-axial collection, mass effect, midline shift, herniation or hydrocephalus. The ventricles, sulci and cisterns are age appropriate. The ross-white differentiation is intact. Patchy periventricular and subcortical white matter hypoattenuation is nonspecific but may be related to small vessel ischemic disease. The visualized paranasal sinuses and mastoid air cells are clear. The surrounding soft tissues and osseous structures are unremarkable. IMPRESSION: 1. No acute intracranial abnormality. 2. No significant change from 07/26/2024. Labs Test 01/26/25 17:57 01/26/25 12:53 Range/Units Urine Opiates Screen Neg NEGATIVE Urine Fentanyl Screen Neg NEGATIVE Urine Barbiturates Screen Neg NEGATIVE Urine Phencyclidine Screen Neg NEGATIVE Urine Amphetamines Screen Neg NEGATIVE Urine Benzodiazepines Screen Neg NEGATIVE Urine Cocaine Screen Neg NEGATIVE Urine Cannabinoids Screen Neg NEGATIVE White Blood Count 5.2 4.4-10.8 10^3/uL Red Blood Count 4.96 4.5-5.90 10^6/uL Hemoglobin 14.5 13.5-17.5 g/dL Hematocrit 43.0 41.0-53.0 % Mean Corpuscular Volume 86.8 80.0-100.0 fL Mean Corpuscular Hemoglobin 29.2 28.0-32.0 pg Mean Corpuscular Hemoglobin Concent 33.6 32.0-36.0 g/dL Red Cell Distribution Width 15.9 H 11.8-14.3 % Platelet Count 180 140-450 10^3/uL Mean Platelet Volume 8.9 6.9-10.8 fL Neutrophils (%) (Auto) 54.4 37.0-80.0 % Lymphocytes (%) (Auto) 40.3 10.0-50.0 % Monocytes (%) (Auto) 4.5 0.0-12.0 % Eosinophils (%) (Auto) 0.6 0.0-7.0 % Basophils (%) (Auto) 0.2 0.0-2.0 % Neutrophils # (Auto) 2.8 1.6-8.6 10 ^3/uL Lymphocytes # (Auto) 2.1 0.4-5.4 10 ^3/uL Monocytes # (Auto) 0.2 0-1.3 10 ^3/uL Eosinophils # (Auto) 0 0-0.8 10 ^3/uL Basophils # (Auto) 0 0-0.2 10 ^3/uL Nucleated Red Blood Cells 0.2 % Sodium Level 145 136-145 mmol/L Potassium Level 3.4 L 3.5-5.1 mmol/L Chloride Level 110 H 98-107 mmol/L Carbon Dioxide Level 20 20-31 mmol/L Anion Gap 15 5-15 Blood Urea Nitrogen 5 L 9-23 mg/dL Creatinine 0.85 0.700-1.30 mg/dL Glomerular Filtration Rate Calc 115 >90 mL/min BUN/Creatinine Ratio 5.9 L 10.0-20.0 Serum Glucose 126 H 74-106 mg/dL Calcium Level 8.9 8.7-10.4 mg/dL Total Bilirubin 0.3 0.2-1.0 mg/dL Aspartate Amino Transferase (AST) 22 <34 U/L Alanine Aminotransferase (ALT) 22 7-40 U/L Alkaline Phosphatase 84 46-116 U/L Total Protein 6.6 5.7-8.2 g/dL Albumin 4.2 3.2-4.8 g/dL Plasma/Serum Blood Alcohol 422.9 *H <10 mg/dL Assessment/Plan Assessment/Plan Assessment Toxic encephalopathy Alcohol intoxication Plan Admit the patient to Med surge to the hospitalist Thiamine/folic acid Banana bag Librium Continue treatment per orders. Plan discussed with: Patient My Orders Orders - CORINNE SOOD Procedure Category Date Status Time Folic Acid Tablet PHA 01/27/25 In Process 10:00 Thiamine Tab PHA 01/27/25 In Process 10:00 Chlordiazepoxide Hcl PHA 01/26/25 In Process Capsule (Librium Ca 19:00 Admit ADMIT 01/26/25 Transmitted 18:54 Ondansetron Hcl PHA 01/26/25 In Process (Zofran) 19:00 Condition: Stable YAHAIRA 01/26/25 In Process 18:54 Bedrest With Bathroom YAHAIRA 01/26/25 In Process Privileg 18:54 Date of Service: Jan 26, 2025 Billing Provider: CORINNE SOOD Common Visit Codes: [id number] INP/OBS CARE (MOD) CORINNE SOOD Jan 27, 2025 00:56
[2025-01-27] MEDS: FOLIC ACID 1 MG TAB PO SCH (09:03)
[2025-01-27] MEDS: THIAMINE HCL 100 MG TAB PO SCH (09:04)
[2025-01-27] MEDS: POTASSIUM EFFERVESENT TAB 25 MEQ PO ONE ×2 (09:04→16:31)
[2025-01-27] MEDS: KETOROLAC TROMETH 30 MG/ML 1ML VIAL IV ONE (14:29)
[2025-01-27] MEDS: PANTOPRAZOLE 40 MG/10 ML VIAL INJ IV ONE (14:29)
[2025-01-27] MEDS: THIAMINE 100mg/ml INJ (200mg/2ml VIAL) IV ONE (14:30)
[2025-01-27] MEDS: ONDANSETRON ODT 4 MG TAB PO PRN (14:31)
--- NOTE | 2025-01-27 15:39 | DVHPNRES ---
Progress Note Date Seen: Jan 27, 2025 Resident Creating Document: MARIA MADRID RESIDENT Has the PT tested + for MRSA If YES, has PT been informed?: No Medical Necessity Reason Pt with a Central, PICC or Fol: No Medical Necessity Reason 34-year-old male presents for evaluation of altered mental status. Patient was found by EMT unresponsive. The patient has history of alcohol abuse disorder and has been admitted on multiple occasions for alcohol intoxication. At the ED was found lethargic but oriented x3. Does not recall how he ended up in the hospital. Patient seen and examined at bedside. Today, the patient is alert, reports headache, epigastric abdominal pain, nausea, generalized weakness and myagias. Patient denies fever, vomit, diarrhea, hallucinations or tremor. Vital signs were reviewed, there was no fever or chills overnight. We will continue to follow up closely with the patient. ROS Constitutional: Denies weight loss, fever and chills. HEENT: Patient report headache. Denies changes in vision and hearing. Respiratory: Denies shortness of breath and cough Cardiovascular: Denies chest discomfort or palpitations GI: Mild epigastric abdominal pain. : Denies dysuria and urinary frequency. Musculoskeletal: reports generalized myalgias Skin: Denies rash and pruritus. Neurological: Denies dizziness, tremors, hallucinations, vision or hearing problems Subjective Review of Systems 34-year-old male presents for evaluation of altered mental status. Patient was found by EMT unresponsive. The patient has history of alcohol abuse disorder and has been admitted on multiple occasions for alcohol intoxication. At the ED was found lethargic but oriented x3. Does not recall how he ended up in the hospital. Patient seen and examined at bedside. Today, the patient is alert, reports headache, epigastric abdominal pain, nausea, generalized weakness and myagias. Patient denies fever, vomit, diarrhea, hallucinations or tremor. Vital signs were reviewed, there was no fever or chills overnight. We will continue with Banshirlene bag and will add D5W/Solucion0.45%, and re-assess. We will continue to follow up closely with the patient. ROS Constitutional: Denies weight loss, fever and chills. HEENT: Patient report headache. Denies changes in vision and hearing. Respiratory: Denies shortness of breath and cough Cardiovascular: Denies chest discomfort or palpitations GI: Mild epigastric abdominal pain. : Denies dysuria and urinary frequency. Musculoskeletal: reports generalized myalgias Skin: Denies rash and pruritus. Neurological: Denies dizziness, tremors, hallucinations, vision or hearing problems Objective vital signs Vital Sign Date Time Temp Pulse Resp B/P (MAP) Pulse Ox O2 Delivery O2 Flow Rate FiO2 01/27/25 12:53 97.9 85 19 169/97 (121) 94 97.9 01/27/25 02:56 Room Air* 0 21 Total Intake and Output 01/26/25 01/26/25 01/27/25 15:00 23:00 07:00 Intake Total 2125 ml 100 ml Balance 2125 ml 100 ml medications Current Medications Medications Dose Ordered Sig/Pearl Route Start Time Stop Time Status Last Admin Dose Admin Lorazepam 1 mg Q5MINP PRN IV 01/26/25 19:00 Chlordiazepoxide HCl 50 mg Q12HR PO 01/27/25 10:00 01/27/25 22:01 Chlordiazepoxide HCl 25 mg Q12HR PO 01/28/25 10:00 01/28/25 22:01 Chlordiazepoxide HCl 25 mg QAM PO 01/29/25 07:00 01/29/25 07:01 Dextrose/Sodium Chloride 1,000 ml @ 100 mls/hr Q10H IV 01/27/25 12:15 Pantoprazole Sodium 40 mg DAILY IV 01/28/25 10:00 Ondansetron HCl 4 mg Q6HP PRN PO 01/27/25 12:15 01/27/25 14:31 4 MG Folic Acid 1 mg DAILY PO 01/28/25 10:00 Multivitamins 1 tab DAILY PO 01/28/25 10:00 Magnesium Oxide 400 mg DAILY PO 01/28/25 10:00 Thiamine HCl 100 mg DAILY PO 01/28/25 10:00 Examination Physical Examination General: Patient alert and oriented in person, place and time. Patient following commands. HEENT: Normocephalic, atraumatic, moist mucous membranes Respiratory/pulmonary: Clear lungs bilaterally, no associated crackles or wheezes. Cardiovascular: Normal heart sounds S1 and S2 with no associated murmurs Abdomen: mild epigastric abdominal pain, no palpable masses. Extremities: There is no peripheral edema present at the lower extremities. Skin: No rashes or pruritus, there is no sacral edema present at this time. Neurological: Intact cranial nerves, oriented x3, no hallucinations, no tremors. laboratory and microbiology Laboratory Tests 01/26/25 12:53 Test 01/26/25 12:53 Range/Units Serum Glucose 126 H 74-106 mg/dL Problem List/Assessment/Plan Problem List/Assessment/Plan Assessment Acute Toxic Encephalopathy likely due to Alcohol Intoxication. Continue Thiamine 100mg IV Switch Thiamine to PO Alcohol intoxication Thiamine 100mg IV Librium CIWA protocol Ondansetron Hcl IV fluids: D5W/Sodium chloride 0.45% at 100 cc/hr Ketorolac 15mg IV Ruled out pancreatitis Lipase 51 Continue IV fluids Hypokalemia Potasoium 3.4 potasium effervesce tablet 25 meq GERD Start pantoprazole 40mg QD Goals of care discussed with the patient and resident care aid at bedside for >35min, FULL CODE Plan discussed with Dr. Amaro Plan discussed with: Patient My Orders My Orders Orders - MARIA MADRID RESIDENT Procedure Category Date Status Time D5w/Sod Chl 0.45% PHA 01/27/25 In Process (D5w 1/2ns) 12:15 Pantoprazole PHA 01/28/25 In Process (Protonix) 10:00 Ondansetron Po PHA 01/27/25 In Process (Zofran Po) 12:15 Date of Service: Jan 27, 2025 Billing Provider: KADI SYLVESTER MD Common Visit Codes: [id number] INP/OBS CARE(HIGH) MARIA MADRID RESIDENT Jan 27, 2025 15:39 KADI SYLVESTER MD Jan 27, 2025 22:24
[2025-01-27] MEDS: D5W/SOD CHL 0.45% 1,000 ML IV SCH (16:42)
[2025-01-27] MEDS: MAGNESIUM OXIDE 400 MG TAB PO ONE (18:21)
[2025-01-27] MEDS: MULTIPLE VITAMIN TAB PO ONE (18:21)
[2025-01-27] MEDS: HYDROcodone-ACET 5/325MG TAB PO PRN (18:38)
[2025-01-27] MEDS: BACLOFEN 10 MG TAB PO PRN (20:26)
[2025-01-28 01:00] VITALS: BP 142/95; PULSE 70; RESP 17; TEMP 97.6; O2SAT 98
[2025-01-28 05:00] VITALS: BP 139/88; PULSE 69; RESP 17; TEMP 97.9; O2SAT 99
--- NOTE | 2025-01-28 06:37 | DVHDS2 ---
Physician Discharge Progress N Final Diagnosis: Acute Toxic Encephalopathy likely due to Alcohol Intoxication. Alcohol intoxication Hypokalemia GERD Condition on Discharge: Stable Disposition: Home Discharge Instructions: Diet: Regular Activity: No Restrictions, As Tolerated Follow Up/Referral: Follow up with PCP in 1 week. Follow Up Care: Discharge Statement: "Patient was advised to return to the ER or call 911 if any headaches, dizziness, shortness of breath, chest pain, abdominal pain, bleeding, fevers, or worsening of medical condition. Patient was counseled about treatment plan, medications, possible side effects, patientverbalized understanding. All questions were answered to the best of my ability. This discharge took greater then 30 minutes in planning, reviewing documentation, counseling the patient, and discussing with other team members." MARIA MADRID RESIDENT Jan 28, 2025 06:37
[2025-01-28 07:38] LABS: Hematocrit 42.8 % (41.0-53.0); Hemoglobin 14.7 g/dL (13.5-17.5); Mean Corpuscular Hemoglobin 29.7 pg (28.0-32.0); Mean Corpuscular Volume 86.2 fL (80.0-100.0); Nucleated Red Blood Cells % 0.1 %
[2025-01-28 07:41] LABS: Anion Gap 9 (5-15); Carbon Dioxide 25 mmol/L (20-31); Chloride 105 mmol/L (98-107); Potassium 3.8 mmol/L (3.5-5.1); Sodium 139 mmol/L (136-145)
[2025-01-28 07:42] LABS: Calcium 9.6 mg/dL (8.7-10.4)
[2025-01-28 07:47] LABS: BUN/Creatinine Ratio 10.1 (10.0-20.0); Blood Urea Nitrogen 9 mg/dL (9-23); Glucose 105 mg/dL (74-106)
[2025-01-28 08:30] VITALS: PULSE 71; RESP 20; O2SAT 98
[2025-01-28 09:00] VITALS: BP 137/92; PULSE 71; RESP 20; TEMP 97; O2SAT 98
[2025-01-28] MEDS: MAGNESIUM OXIDE 400 MG TAB PO SCH (10:29)
[2025-01-28] MEDS: FOLIC ACID 1 MG TAB PO SCH (10:29)
[2025-01-28] MEDS: PANTOPRAZOLE 40 MG/10 ML VIAL INJ IV SCH (10:29)
[2025-01-28] MEDS: THIAMINE HCL 100 MG TAB PO SCH (10:29)
[2025-01-28] MEDS: MULTIPLE VITAMIN TAB PO SCH (10:29)
[2025-01-28 12:18] VITALS: BP 152/106; PULSE 86; RESP 18; TEMP 98.7; O2SAT 96
--- NOTE | 2025-01-28 13:41 | DVHDSRES ---
Discharge Summary Date of Admission Resident Creating Document: MARIA MADRID RESIDENT Jan 26, 2025 at 18:54 Date of Discharge: Jan 28, 2025 Admitting Diagnosis Acute toxic encephalopathy likely due to alcoholic intoxication Wounds: No wounds present Labs/Diagnostic Data: Laboratory Results Test 01/28/25 06:27 01/27/25 13:21 01/26/25 17:57 01/26/25 12:53 White Blood Count 4.9 10^3/uL (4.4-10.8) Red Blood Count 4.96 10^6/uL (4.5-5.90) Hemoglobin 14.7 g/dL (13.5-17.5) Hematocrit 42.8 % (41.0-53.0) Mean Corpuscular Volume 86.2 fL (80.0-100.0) Mean Corpuscular Hemoglobin 29.7 pg (28.0-32.0) Mean Corpuscular Hemoglobin Concent 34.4 g/dL (32.0-36.0) Red Cell Distribution Width 15.5 % (11.8-14.3) Platelet Count 164 10^3/uL (140-450) Mean Platelet Volume 9.2 fL (6.9-10.8) Neutrophils (%) (Auto) 52.4 % (37.0-80.0) Lymphocytes (%) (Auto) 34.7 % (10.0-50.0) Monocytes (%) (Auto) 10.2 % (0.0-12.0) Eosinophils (%) (Auto) 2.2 % (0.0-7.0) Basophils (%) (Auto) 0.5 % (0.0-2.0) Neutrophils # (Auto) 2.6 10 ^3/uL (1.6-8.6) Lymphocytes # (Auto) 1.7 10 ^3/uL (0.4-5.4) Monocytes # (Auto) 0.5 10 ^3/uL (0-1.3) Eosinophils # (Auto) 0.1 10 ^3/uL (0-0.8) Basophils # (Auto) 0 10 ^3/uL (0-0.2) Nucleated Red Blood Cells 0.1 % Sodium Level 139 mmol/L (136-145) Potassium Level 3.8 mmol/L (3.5-5.1) Chloride Level 105 mmol/L (98-107) Carbon Dioxide Level 25 mmol/L (20-31) Anion Gap 9 (5-15) Blood Urea Nitrogen 9 mg/dL (9-23) Creatinine 0.89 mg/dL (0.700-1.30) Glomerular Filtration Rate Calc 114 mL/min (>90) BUN/Creatinine Ratio 10.1 (10.0-20.0) Serum Glucose 105 mg/dL (74-106) Calcium Level 9.6 mg/dL (8.7-10.4) Lipase 57 U/L (12-53) Urine Opiates Screen Neg (NEGATIVE) Urine Fentanyl Screen Neg (NEGATIVE) Urine Barbiturates Screen Neg (NEGATIVE) Urine Phencyclidine Screen Neg (NEGATIVE) Urine Amphetamines Screen Neg (NEGATIVE) Urine Benzodiazepines Screen Neg (NEGATIVE) Urine Cocaine Screen Neg (NEGATIVE) Urine Cannabinoids Screen Neg (NEGATIVE) Total Bilirubin 0.3 mg/dL (0.2-1.0) Aspartate Amino Transferase (AST) 22 U/L (<34) Alanine Aminotransferase (ALT) 22 U/L (7-40) Alkaline Phosphatase 84 U/L (46-116) Total Protein 6.6 g/dL (5.7-8.2) Albumin 4.2 g/dL (3.2-4.8) Plasma/Serum Blood Alcohol 422.9 mg/dL (<10) Other Laboratory Tests 01/28/25 06:27 Brief Hx & Hospital Course: 34-year-old male presents for evaluation of altered mental status. Patient was found by EMS unresponsive. The patient has history of alcohol abuse disorder and has been admitted on multiple occasions for alcohol intoxication. At the ED was found lethargic but oriented x3. Does not recall how he ended up in the hospital. The patient was admitted and received Bananna bag and will add D5W/Solucion0.45%. Patient was reassessed and showed improvement of symptoms. Today, the patient is alert, reports felling better with improvement of symptoms, headache, nausea and myalgias have resolved. The patient denies fever, nausea, myalgias, vomit, diarrhea, hallucinations or tremor. Discharge plan was discussed with the patient, the patient will follow up with PCP in 1 week to continue outpatient alcohol consumption disorder treatment. The patient agreed to plan. ROS Constitutional: Denies weight loss, fever and chills. HEENT: Patient report headache. Denies changes in vision and hearing. Respiratory: Denies shortness of breath and cough Cardiovascular: Denies chest discomfort or palpitations GI: soft, not distended, no abdominal pain. : Denies dysuria and urinary frequency. Musculoskeletal: no myalgias Skin: Denies rash and pruritus. Neurological: Denies dizziness, tremors, hallucinations, vision or hearing problems. Physical Examination General: Patient alert and oriented in person, place and time. Patient following commands. HEENT: Normocephalic, atraumatic, moist mucous membranes Respiratory/pulmonary: Clear lungs bilaterally, no associated crackles or wheezes. Cardiovascular: Normal heart sounds S1 and S2 with no associated murmurs Abdomen: soft, tenderness no palpable masses. Extremities: There is no peripheral edema present at the lower extremities. Skin: No rashes or pruritus, there is no sacral edema present at this time. Neurological: Intact cranial nerves, oriented x3, no hallucinations, no tremors. Plan Continue with discharge plan Home medication Provide recourses to stop alcohol consumption. Follow up with PCP in 1 week. Condition at Discharge: Stable Final Diagnosis/Problems List Acute Toxic Encephalopathy likely due to Alcohol Intoxication. Alcohol intoxication Hypokalemia GERD Discharge Disposition: Home Discharge Instruct/Medications Diet: Regular Activity: No Restrictions, As Tolerated Follow Up/Referral: Follow up with PCP in 1 week. Medications: continue home medications Scheduled Thiamine Hcl (Vitamin B-1), 100 MG PO DAILY Discharge Statement: "Patient was advised to return to the ER or call 911 if any headaches, dizziness, shortness of breath, chest pain, abdominal pain, bleeding, fevers, or worsening of medical condition. Patient was counseled about treatment plan, medications, possible side effects, patientverbalized understanding. All questions were answered to the best of my ability. This discharge took greater then 30 minutes in planning, reviewing documentation, counseling the patient, and discussing with other team members." ASSESSMENT ASSESSMENT Assessment Acute Toxic Encephalopathy likely due to Alcohol Intoxication. Alcohol intoxication Hypokalemia MARIA GALLARDO RESIDENT Jan 28, 2025 13:41
== END 2025-01-28 13:21 | disposition home or self-care (01) | DRG 816 ==
LOC: EDBD 11:57 → ER 11:57 → EDUNIT# 11:57 → OVERFLOW 18:54 → CENTRAL 01-27 02:19 → TELE-CENTR 01-27 11:14 → CENTRAL 01-27 22:21
PROVIDERS: ADMIT Student in an Organized Health Care Education/Training Program; ATTEND Emergency Medicine
PROC: 05H933Z Insertion of Infusion Device into Right Brachial Vein, Percutaneous Approach (ICD-10-PCS; principal; 2025-01-26)
PROC: B54MZZA Ultrasonography of Right Upper Extremity Veins, Guidance (ICD-10-PCS; 2025-01-26)
DX: T51.0X1A Toxic effect of ethanol, accidental (unintentional), initial encounter (principal); G92.8 Other toxic encephalopathy; E87.29 Other acidosis; F10.129 Alcohol abuse with intoxication, unspecified; E87.6 Hypokalemia; K21.9 Gastro-esophageal reflux disease without esophagitis; Y90.8 Blood alcohol level of 240 mg/100 ml or more
CPT/HCPCS: 36415; 70450; 80048; 80053; 80307; 80320; 83690; 85025; 96360; 96361; G0378; J1885; J2470; Q0162